=== PATIENT | female | born 1995 | race Caucasian/White ===

== ENCOUNTER 2018-11-11 06:18 | Day surgery (SDC) | payer SELFPAY ==
[2018-11-11] MEDS ORDERED: OXYMETAZOLINE 0.05% NASAL SOLUTION 15 ML BOTTLE NS ONE ×2 (07:14→08:57)
[2018-11-11] MEDS ORDERED: LIDOCAINE 1%/EPI 1:100000 (20 ML MULTI DOSE VIAL) ONE ×2 (07:15→08:49)
[2018-11-11 07:24] VITALS: BMI 20.9
[2018-11-11] MEDS ORDERED: fentaNYL CITRATE 250 MCG/5 ML VIAL ONE (08:00)
[2018-11-11] MEDS ORDERED: PROPOFOL 20 ML ONE ×5 (08:01→12:12)
[2018-11-11] MEDS ORDERED: MIDAZOLAM HCL 2 MG/2 ML SINGLE DOSE VIAL ONE (08:01)
[2018-11-11] MEDS ORDERED: SUCCINYLCHOLINE CHLORIDE 200 MG/10 ML VIAL ONE (08:01)
[2018-11-11] MEDS ORDERED: ROCURONIUM BROMIDE 50 MG/5 ML VIAL ONE (08:01)
[2018-11-11] MEDS ORDERED: HALOPERIDOL LACTATE 5 MG/ML ONE (08:10)
[2018-11-11] MEDS ORDERED: KETOROLAC TROMETHAMINE 30 MG/1 ML VIAL ONE (08:40)
[2018-11-11] MEDS ORDERED: LIDOCAINE HCL 2% JELLY (5 ML/TUBE) ONE (08:40)
[2018-11-11] MEDS ORDERED: ceFAZolin SODIUM 1 GM VIAL ONE ×2 (08:40→12:40)
[2018-11-11] MEDS ORDERED: LIDOCAINE HCL/PF 2% SDV 5ML VIAL ONE (08:40)
[2018-11-11] MEDS ORDERED: ONDANSETRON 4 MG/2 ML VIAL ONE (08:40)
[2018-11-11] MEDS ORDERED: DEXAMETHASONE SOD PHOSPHATE 4 MG/1 ML VIAL ONE (08:40)
[2018-11-11] MEDS ORDERED: DESFLURANE GAS 240 ML BOTTLE IH ONE (09:39)
[2018-11-11] MEDS ORDERED: GLYCOPYRROLATE 0.2 MG/1 ML VIAL ONE (12:08)
[2018-11-11] MEDS ORDERED: NEOSTIGMINE METHYLSULFATE 0.5 MG/ML - 10 ML MDV ONE (12:08)
[2018-11-11] MEDS ORDERED: BACITRACIN 15 GM TUBE TOPICAL OINTMENT ONE (12:10)
[2018-11-11] MEDS ORDERED: BACITRACIN 15 GM TUBE TOPICAL OINTMENT TP ONE (12:17)
[2018-11-11] MEDS ORDERED: ONDANSETRON 4 MG/2 ML VIAL IVPUSH PRN (13:02)
[2018-11-11] MEDS ORDERED: PROMETHAZINE HCL 25 MG/1 ML VIAL IVPUSH PRN (13:02)
[2018-11-11] MEDS ORDERED: oxyCODONE HCL 5 MG TABLET PO PRN ×4 (13:02→13:10)
[2018-11-11] MEDS ORDERED: ONDANSETRON 4 MG/2 ML VIAL IVPB PRN (13:10)
[2018-11-11] MEDS ORDERED: LACTATED RINGERS SOLUTION 1,000 ML IV SCH (13:15)
--- NOTE | 2018-11-11 13:15 | OP ---
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
[2018-11-11 15:37] VITALS: BP 122/65; PULSE 60; TEMP 98
--- NOTE | 2018-11-11 21:51 | OP ---
DATE OF OPERATION: 11/11/2018 TITLE OF PROCEDURE: Septoplasty, rhinoplasty. PREOPERATIVE DIAGNOSES: Nasal deviation, nasal septal deviation. POSTOPERATIVE DIAGNOSES: Nasal deviation, nasal septal deviation. ATTENDING SURGEON: Armando Downey MD ANESTHESIA: General endotracheal by JOSI Ambrose. The patient is seen in the holding area. She is marked. She is counseled on all risks, benefits, and alternatives as well as limitations to the operation which she fully understands and agrees. It is thoroughly discussed that straight midline nose will not likely be achieved in this operation. The patient is given ROLO hose and sequential compression stockings. Consents are signed. She is awake and aware of the markings for a transcolumellar incision. She is also counseled on the possibility of an accessory incision at the upper limit of the nasal bones for the infracture. Patient brought to the operating room, placed in a supine position. Position was carefully checked by surgical and anesthesia teams. Gutierrez catheter is placed after anesthesia is given. Her arms are tucked on the right side only. Egg crate is used. A pillow is placed below the knees. The nose is then prepped with injection of the septum with a total of 8 mL of 1% lidocaine with 1:100,000 epinephrine. Nose is then packed with Afrin-soaked 1/2-inch cottonoids. After which, the dorsum and columella of the nose are injected with an additional 8 mL of 1% lidocaine with 1:100,000 epinephrine. While this is taking effect, the head is prepped and draped in standard surgical fashion. A throat pack is placed, which is removed at the end of the procedure. After which, timeout is called. Patient, procedure, sites, and sides are verified. At this point, the cottonoids are removed from the nose. The stair-step transcolumellar incision is made. The lower lateral cartilages are identified, and dissection is carried along the lower lateral cartilages. The incisions are combined with bilateral infracartilaginous incisions to expose the nasal tip. Dissection is then continued over the dorsum of the nose, and once over the bony dorsum, a subperiosteal plane is entered with a Silvino elevator. At this point, the septum is dissected. The anterior septal angle is identified, and the fibrous tissue is dissected, exposing the septal cartilage. The septal cartilage is then developed in a submucoperichondrial plane. The septum is then dissected using a combination of [place] and [place] elevators in a complete submucoperichondrial plane to the vomer and perpendicular plate of the ethmoid and caudally along the maxillary spine. Once the entirety of the septum is exposed, dorsal septal trim is performed using angled scissors. Approximately 3-mm dorsal reduction is performed. The septal curvature is appreciated as a C-shaped septal deformity with the concave side on the patient's right, mostly focused on the distal portion of the septum. The submucosal resection of the septum is then prepared and marked, leaving a 1.25-cm rim strip L strut both caudally and dorsally. This resection is then performed under direct vision using scissors. The resected cartilage is preserved as a graft. The residual cartilage is then assessed, and transverse scoring of the cartilage is performed on the concave side in order to allow for correction of the deformity. As described, the deformity is primarily along the caudal portion of the septum where the more cephalad portions of the septum do not appear to be significantly affected. A composite reduction of the prominent elements of the upper lateral cartilages bilaterally is then also reduced with angled scissors. Attention is then directed toward the bony dorsum. A combination of 4.5 and 3 Fomon rasps are used on a bias to reduce the bony dorsum until an even profile is achieved appreciated from both sides of the patient. This creates an open roof which will require bilateral lateral osteotomies. The periosteal tunnels were then injected with 1% lidocaine with 1:100,000 epinephrine. This is an injection volume of a total of 5 mL between the 2 sides. After this is performed, bilateral lateral pyriform aperture incisions are made, and the external surface of the periosteum is elevated using a Silvino elevator. A 4-mm single-guarded, curved osteotome is then used on each side for the osteotomies. A clear infracture is able to be achieved on the patient's left side. However, on the patient's right side, this approach does not yield a complete osteotomy. A separate osteotomy is then performed along the superior aspect of the nasal bone percutaneously through a 2-mm incision made with an 11 blade. A 2-mm osteotome is used to make a perforated osteotomy along this border until when the fracture is able to be achieved. With mobilization of the nasal bones, a midline position of the nasal pyramid is able to be achieved. Attention is then redirected toward the caudal septum. Caudal septum is further dissected from the lower lateral cartilages in order to expose its full extent. Its base is midline on the anterior maxillary spine and does not need to be repositioned. The scoring that had been previously performed allows for some centralization of the tip structures. However, a strut along the caudal septum is required to support this and hold its midline position. At this point, from the submucosal resection of the septum, a midline strut is created measuring 2 cm in length. It is lying across the entire extent of the left side of the caudal septum. It is secured with 2 separate, mattressed, 4-0 Prolene sutures until a more-centralized and stable appearance of the nasal tip is achieved. At this point, the fine-tune rasping is performed on the nasal dorsum until a smooth, even contour is assured, and the nasal tip complex is re-secured to the lower lateral cartilages to each other with a series of interrupted 5-0 PDS suture. No restructuring of the tip from these tip sutures is intended, simply a replacement of the tip structures that had been dissected in order to access the caudal septum. The nasal skin is then re-draped. After irrigation, hemostasis is assured. Excellent contour of the nose is appreciated. Closure is performed of the transcolumellar incision with a series of interrupted 6-0 nylon suture. The stab wound on the patient's right side for the completion osteotomy is closed with a series of interrupted 6-0 nylon suture. The endonasal incisions are closed with a series of interrupted 5-0 chromic gut sutures. The osteotomy incisions are left open for drainage. Internal nasal Silastic splints are then placed, secured with a 4-0 Prolene transseptal mattress suture. A [place] splint is applied. A moustache dressing is applied. The nasal tip skin is pink and viable at the end of this operation. There is no concern for any bleeding. The throat pack is removed. The throat is suctioned. Patient is to be woken from anesthesia without complication. Aide [id number]
== END 2018-11-11 15:37 | disposition home or self-care (01) ==
LOC: FASU 06:18
PROVIDERS: ATTEND Plastic Surgery
PROC: 09UK07Z Supplement Nasal Mucosa and Soft Tissue with Autologous Tissue Substitute, Open Approach (ICD-10-PCS; principal; 2018-11-11 09:10)
DX: Z41.1 Encounter for cosmetic surgery (principal); J34.2 Deviated nasal septum
CPT/HCPCS: 81025; 94760